=== PATIENT | male | born 1970 | race Caucasian/White ===

== ENCOUNTER 2017-09-11 09:35 | Outpatient (CLI) | payer BC ==
[~2017-09-11 09:35] MED LIST: PRO40 PO; RANI150T8 PO
== END 2017-09-11 22:12 | disposition home or self-care (01) ==
LOC: SRD 09:35
PROVIDERS: ATTEND Otolaryngology
DX: Z01.818 Encounter for other preprocedural examination (principal); J34.2 Deviated nasal septum
CPT/HCPCS: 71046-TC; 93005